=== PATIENT | female | born 1975 | race Caucasian/White ===

== ENCOUNTER 2023-06-25 21:19 | Outpatient (REF) | payer BC, SELFPAY ==
[2023-06-29 11:10] LABS: Age Gdln ACOG Testing Note (.); HPV Aptima Negative (Negative); IGP, Aptima HPV, rfx 16/18,45 Note (.)
== END 2023-06-25 21:20 | disposition home or self-care (01) ==
LOC: LAB 21:19
PROVIDERS: PCP Family Medicine; Visit Provider Obstetrics & Gynecology
DX: Z01.419 Encounter for gynecological examination (general) (routine) without abnormal findings (principal)
CPT/HCPCS: 87624; G0145

== ENCOUNTER 2024-06-23 12:31 | Emergency (ER) | payer BC, SELFPAY ==
[2024-06-23] VITALS (18 sets, daily range): BP systolic 112–142; BP diastolic 66–97; PULSE 77–93; TEMP 36.6; O2SAT 97–100; BMI 20.4
--- NOTE | 2024-06-23 13:24 | ECG_ITS ---
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
--- NOTE | 2024-06-23 13:25 | CT_ITS ---
The [address] [address] Patient Name: ANA HOPPER MRN: [id number] date: 1975 Sex: F Assigned Patient Location: ER Current Patient Location: ER Accession/Order Number: [id number] Exam Date: 06/23/2024 13:49 Report Date: 06/23/2024 14:41 At the request of: MARGUERITE MOREIRA Procedure: CT head/brain wo con EXAM: CT head/brain wo con HISTORY: Headache COMPARISON: None. TECHNIQUE: Multiple thin computed tomograms of the head were obtained, with sagittal and coronal reconstructions. Radiation reduction technique and algorithms were utilized during the study. FINDINGS: The ventricles are not enlarged, the lateral ventricles are symmetric and the third ventricles in the midline. The sylvian fissures and cortical sulci are unremarkable. There is no evidence of an intracranial hemorrhage, mass lesion or apparent acute infarct. No focal abnormality is identified the deep white matter. The cerebellum and visualized brainstem are intact. The visualized paranasal sinuses are clear. The middle ears are aerated. The mastoid sinuses are clear. There is no apparent acute skull fracture. CT/CT head/brain wo con IMPRESSION: There is no evidence of an intracranial hemorrhage, mass lesion or apparent acute infarct. The paranasal sinuses are clear. There is no apparent acute skull fracture. Electronically authenticated by: FITZ STANTON Date: 06/23/2024 14:41
--- NOTE | 2024-06-23 13:26 | ED.ARRPALP1 ---
HPI - Arrhythmia/Palpitations General Chief Complaint: Arrhythmia/Palpitations Stated Complaint: FAST HEART RATE/BLURRED VISION Time Seen by Provider: 06/23/24 13:05 Source: patient and family Mode of arrival: Wheelchair Limitations: no limitations History of Present Illness HPI narrative: Patient is a 48-year-old female who presents to the emergency department for the evaluation of multiple complaints. Patient states on Sunday she noticed blood in her urine so she had a telemedicine appointment to have antibiotics started for UTI. No one checked her urine. She states the blood has stopped at this time. Today she states she does not feel well she has had a left frontal headache associated with intermittent blurred vision as well as palpitations and a feeling that her heart is racing. She is noted to be normal sinus on the air sampling and monitoring at a rate of 84 at time of my evaluation, she states she still feels as though her heart is racing. She is not concerned for . She does not complain chest pain or shortness of breath. She has not had any objective fevers although she states she took Tylenol prior to arrival because she felt warm. She denies upper respiratory symptoms, vomiting or diarrhea. She states her arms and legs feel heavy . Related Data Allergies Allergy/AdvReac Type Severity Reaction Status Date / Time No Known Drug Allergies Allergy Verified 06/23/24 12:51 Review of Systems ROS Constitutional Denies: fever or chills Ears, nose, mouth, and throat Denies: throat pain or nasal congestion Cardiovascular Reports: palpitations; Denies: chest pain Respiratory Denies: shortness of breath Gastrointestinal Reports: nausea; Denies: vomiting Genitourinary Reports: blood in urine Musculoskeletal Denies: back pain or neck pain Integumentary/Breast Denies: rash Neurological Reports: headache and weakness in extremities; Denies: numbness in extremities or dizziness Hematologic/Lymphatic Denies: easy bruising or easy bleeding PFSH PFSH Social History Little interest or pleasure in doing things: not at all Feeling down, depressed, or hopeless: not at all Exam Narrative Exam Narrative: Gen.: Awake, alert, in no distress Head: Normocephalic, atraumatic ENT: Moist mucous membranes, moist mucous membranes Respiratory: No respiratory distress, lungs clear bilaterally Cardio: Regular rate and rhythm Gastrointestinal: Abdomen is soft, nondistended and nontender to palpation Extremities: Moves extremities equally Psych: Normal mood and affect Neuro: No focal neuro deficit Skin: Warm, dry, intact Constitutional Vital Signs, click to edit/add: Last Vital Signs Temp 97.8 F 06/23/24 12:47 Pulse 85 06/23/24 15:49 Resp 118 H 06/23/24 15:49 BP 115/86 06/23/24 15:49 Pulse Ox 98 06/23/24 15:49 O2 Del Method Room Air 06/23/24 12:47 Course Vital Signs Vital signs: Vital Signs Temperature 97.8 F 06/23/24 12:47 Pulse Rate 90 06/23/24 12:47 Respiratory Rate 20 06/23/24 12:47 Blood Pressure 136/97 H 06/23/24 12:47 Pulse Oximetry 100 06/23/24 12:47 Oxygen Delivery Method Room Air 06/23/24 12:47 Temperature 97.8 F 06/23/24 12:47 Pulse Rate 85 06/23/24 15:49 Respiratory Rate 118 H 06/23/24 15:49 Blood Pressure 115/86 06/23/24 15:49 Pulse Oximetry 98 06/23/24 15:49 Oxygen Delivery Method Room Air 06/23/24 12:47 MDM - Arrhythmia/Palpitations MDM Narrative Medical decision making narrative: Patient treated with IV fluids, Toradol, Zofran. Laboratory studies reviewed and noted within normal limits, patient with mild hyponatremia and ketones in her urine. She is hemodynamically stable with a benign exam, no focal neurodeficits, normal vital signs. Patient was found to have an elevated D-dimer, sent for CT of the brain and CT angio of the chest which were both unremarkable. Patient was reevaluated by attending physician and will be discharged home to follow-up with PCP. Return to the ER if symptoms change or worsen SHARED APC VISIT, PHYSICIAN ATTESTATION: [id number] I performed a substantive part of the MDM during the patient?s E/M visit. I personally evaluated and examined the patient. I personally made or approved the documented management plan and acknowledge its risk of complications. I, Dr Reeves, have reviewed the above progress note and course of action in the ER; agree with the above. I have personally seen and evaluated this patient, gone over history and physical, and discussed disposition and treatment plan with the patient. Medical Records Attestation: I reviewed the patient's medical records. Lab Data Attestation: I reviewed the patient's lab results. Labs: Lab Results 06/23/24 06/23/24 Range/Units 13:17 13:45 WBC 5.9 (4.0-11.0) 10^3/uL RBC 3.89 L (4.20-5.40) 10^6/uL Hgb 12.4 (12.0-16.0) g/dL Hct 33.9 L (36.0-48.0) % MCV 87.1 (81.0-99.0) fL MCH 31.9 (26.7-34.0) pg MCHC 36.6 H (29.9-35.2) g/dL RDW 11.0 (11.0-15.0) % Plt Count 243 (150-450) 10^3/uL MPV 9.5 (9.5-13.5) fL Neut % (Auto) 69.4 (43.0-75.0) % Lymph % (Auto) 18.4 L (20.5-60.0) % [place] % (Auto) 10.3 (1.7-12.0) % Eos % (Auto) 1.3 (0.9-7.0) % Baso % (Auto) 0.3 (0.2-2.0) % Neut # (Auto) 4.1 (1.4-6.5) 10^3/uL Lymph # (Auto) 1.1 L (1.2-3.8) 10^3/uL [place] # (Auto) 0.6 (0.3-0.8) 10^3/uL Eos # (Auto) 0.1 (0.0-0.7) 10^3/uL Baso # (Auto) 0.0 (0.0-0.1) 10^3/uL Abs Immat Gran (auto) 0.02 (0.00-0.03) 10^3/uL Imm/Tot Granulo (auto) 0.3 (0.0-0.5) % PT 10.8 (9.0-11.6) sec INR 1.02 D-Dimer 1.08 H* (<=0.59) mg/L FEU Sodium 131 L (136-145) mmol/L Potassium 3.5 (3.5-5.1) mmol/L Chloride 95 L (98-107) mmol/L Carbon Dioxide 24.9 (21.0-32.0) mmol/L Anion Gap 14.6 BUN 9.0 (7.0-18.0) mg/dL Creatinine 0.70 (0.55-1.02) mg/dL Est GFR ( Amer) >60 (>=60 mL/min/1.73m^2) Est GFR (Non-Af Amer) >60 (>=60 mL/min/1.73m^2) BUN/Creatinine Ratio 12.9 Glucose 99 (74-106) mg/dL Lactate 1.7 (0.4-2.0) mmol/L Calcium 8.5 (8.5-10.1) mg/dL Total Bilirubin 0.5 (0.2-1.0) mg/dL AST 28 (15-37) U/L ALT 18 (14-59) U/L Alkaline Phosphatase 74 (46-116) U/L Troponin I High Sens <4.0 L (4.0-51.3) pg/mL NT-Pro-B Natriuret Pep 201.0 (<=450.0) pg/mL Total Protein 6.7 (6.4-8.2) g/dL Albumin 3.2 L (3.4-5.0) g/dL Globulin 3.5 g/dL Albumin/Globulin Ratio 0.9 TSH 1.458 (0.358-3.740) uIU/mL Serum HCG, Qual Negative (NEGATIVE) Urine Color Lt. yellow (YELLOW) Urine Clarity Clear (CLEAR) Urine pH 6.0 (5.0-9.0) Ur Specific [place]ot <=1.005 A (1.005-1.025) Urine Protein Negative (NEG/TRACE) mg/dL Urine Glucose (UA) Negative (NEGATIVE) mg/dL Urine Ketones 15 A (NEGATIVE) mg/dL Urine Occult Blood Small A (NEGATIVE) Urine Nitrite Negative (NEGATIVE) Urine Bilirubin Negative (NEGATIVE) Urine Urobilinogen 0.2 (0.2-1.0) EU/dL Ur Leukocyte Esterase Negative (NEGATIVE) Urine RBC 2-5 A (0-2) #/HPF Urine WBC 0-2 A (NONE SEEN) #/HPF Ur Squamous Epith Cells Rare (NONE/RARE) #/LPF Urine Crystals None seen (None Seen) #/HPF Urine Bacteria Trace A (NONE SEEN) #/HPF Urine Casts None seen (NONE SEEN) #/LPF Urine Mucus None seen (NONE SEEN) Ur Culture Indicated? No Imaging Data CT scan - head: Attestation: I have reviewed the pertinent imaging results. Radiologist's impression: ITS Impressions Head CT 06/23/24 13:25 IMPRESSION: There is no evidence of an intracranial hemorrhage, mass lesion or apparent acute infarct. The paranasal sinuses are clear. There is no apparent acute skull fracture. Electronically authenticated by: FITZ STANTON Date: 06/23/2024 14:41 Chest CTA 06/23/24 13:52 IMPRESSION: No central pulmonary thromboembolic disease Electronically authenticated by: LUIS JUNG Date: 06/23/2024 14:54 ECG Data Attestation: I personally reviewed and interpreted this ECG as follows: (Normal sinus rhythm at a rate of 87, no acute ST elevation or ectopy. EKG reviewed by attending physician) Discharge Plan Discharge Chief Complaint: Arrhythmia/Palpitations Clinical Impression: Headache, Palpitations Patient Disposition: Home, Self-Care Time of Disposition Decision: 15:43 Condition: Good Print Language: Kazakh Instructions: Heart Palpitations (ED), Acute Headache (ED) Referrals: KATHLEEN SHAFFER [Primary Care Provider] - 1 week Discharge Date/Time: 06/23/24 15:50
[2024-06-23] MEDS: 0.9 % SODIUM CHLORIDE 1,000 ML 999 ML IV (13:32)
[2024-06-23] MEDS: KETOROLAC TROMETHAMINE 30 MG/ML VIAL IVP (13:33)
[2024-06-23] MEDS: ONDANSETRON PF 4 MG/2 ML VIAL IV (13:33)
[2024-06-23 13:34] LABS: Basophils Percent Auto 0.3 % (0.2-2.0); Eosinophils Absolute Auto 0.1 10^3/uL (0.0-0.7); Eosinophils Percent Auto 1.3 % (0.9-7.0); Hematocrit 33.9 % (36.0-48.0); Hemoglobin 12.4 g/dL (12.0-16.0); Immature Granulocytes Abs Auto 0.02 10^3/uL (0.00-0.03); Immature Granulocytes Pct Auto 0.3 % (0.0-0.5); Lymphocytes Absolute Auto 1.1 10^3/uL (1.2-3.8); Lymphocytes Percent Auto 18.4 % (20.5-60.0); Mean Corpuscular HGB Conc 36.6 g/dL (29.9-35.2); Mean Corpuscular Hemoglobin 31.9 pg (26.7-34.0); Mean Corpuscular Volume 87.1 fL (81.0-99.0); Mean Platelet Volume 9.5 fL (9.5-13.5); Monocytes Absolute Auto 0.6 10^3/uL (0.3-0.8); Monocytes Percent Auto 10.3 % (1.7-12.0); Neutrophils Absolute Auto 4.1 10^3/uL (1.4-6.5); Neutrophils Percent Auto 69.4 % (43.0-75.0); Platelet Count 243 10^3/uL (150-450); Red Blood Count 3.89 10^6/uL (4.20-5.40); White Blood Count 5.9 10^3/uL (4.0-11.0)
[2024-06-23 13:50] LABS: HCG Qualitative NEGATIVE (NEGATIVE); INR 1.02; Internal Control Within Normal Limits; Prothrombin Time 10.8 sec (9.0-11.6)
[2024-06-23 13:52] LABS: D Dimer 1.08 mg/L FEU (<=0.59)
--- NOTE | 2024-06-23 13:52 | CT_ITS ---
[address] [address] Patient Name: ANA HOPPER MRN: [id number] date: 1975 Sex: F Assigned Patient Location: ER Current Patient Location: ER Accession/Order Number: [id number] Exam Date: 06/23/2024 14:00 Report Date: 06/23/2024 14:54 At the request of: MARGUERITE MOREIRA Procedure: CT angio chest EXAMINATION: CT angio chest HISTORY: Palpitations COMPARISON: No relevant comparison available. TECHNIQUE: Multi-planar CT images were created with IV contrast. Axial, Coronal, and Sagittal images. Dose reduction techniques were achieved by using automated exposure control and/or adjustment of mA and/or kV according to patient size and/or use of iterative reconstruction technique. FINDINGS: LUNGS: No visible pulmonary disease. PLEURA: No mass, effusion, or pneumothorax. VASCULATURE: Normal postcontrast opacification of the central pulmonary arterial tree filling defect ALVIN: No mass or adenopathy. MEDIASTINUM: No mass or adenopathy. CARDIAC: No enlargement or pericardial effusion Coronary arteries: Absent calcifications AORTA: No aneurysm or dissection. CHEST WALL: No mass or axillary adenopathy. BONES: No bone lesion or fracture. LIMITED ABDOMEN: No suspicious findings. Limited images of the upper abdomen. OTHER: hyperdensity posterior to a mid thoracic vertebral bodies, exact level cannot be determined. A disc herniation is suspected extending posteriorly up to 3.3 mm best seen on sagittal image 48 CT/CT angio chest IMPRESSION: No central pulmonary thromboembolic disease Electronically authenticated by: LUIS JUNG Date: 06/23/2024 14:54
--- OUTSIDE RECORDS SUMMARY | 2024-06-23 13:55 | XMS_ITS | CCD ---
Author Organization [facility] Care Team Providers Care 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 Name Role Phone BECCA, DR MICHAELA Cazares Admitting Unavailable BECCA, DR MICHAELA Cazares Consulting Unavailable DEENA, DR WANG Primary Care Unavailable BECCA, DR MICHAELA Cazares Attending Unavailable PAY, DR DONOHUE Consulting Unavailable NAHID, DR LOPEZ Consulting Unavailable DEENA, DR WANG Primary Care Unavailable NAHID, DR LOPEZ Attending Unavailable NAHID, DR LOPEZ Admitting Unavailable MARKER, DR DAMON Attending Unavailable MARKER, DR DAMON Admitting Unavailable DEENA, DR WANG Primary Care Unavailable MARKER, DR DAMON Consulting Unavailable STRAWSER, CARLOS Consulting Unavailable LINDSAY SHAFFER Primary Care Physician [phone] LINDSAY SHAFFER Primary Care Physician LINDSAY BLANC Attending Unavailable LINDSAY BLANC Attending Unavailable LINDSAY BLANC Attending Unavailable LINDSAY BLANC Attending Unavailable NAKIA ROE Attending Unavailable Soledad STIPPLER, Sulema Han Unavailable Lindsay Shaffer MD Primary Care Provider Medications Current Medications Medication Drug Class(es) Dates Sig (Normalized) Sig (Original) ergocalciferol 1.25 mg oral capsule (2 sources) Provitamin D2 Compound Start: 10-06-2022 ergocalciferol (Vitamin D-2) 1.25 MG (20403 UT) capsule 1 capsule 10/06/2022 Active 24 hr oxybutynin chloride 10 mg extended release oral tablet (5 sources) Cholinergic Muscarinic Antagonist Start: 07-31-2023 take 1 tablet by mouth once daily oxybutynin 10 mg ER Tab 10 mg = 1 tab(s), Oral, Daily, # 90 tab(s), Refills(s) 3, Pharmacy: [facility], 160, cm, 01/16/24 14:55:00 EDT, Height/Length Dosing, 60, kg, 01/16/24 14:55:00 EDT, Weight Dosing Start Date: 01/16/24 Status: Ordered Start: 07-31-2023 End: 08-30-2023 take 1 tablet by mouth once daily oxybutynin 5 mg ER Tab 5 mg = 1 tab(s), Oral, Daily, X 30 day(s), # 30 tab(s), Refills(s) 0, Pharmacy: [facility], 160, cm, 07/31/23 10:29:00 EST, Height/Length Dosing, 60, kg, 07/31/23 10:29:00 EST, Weight Dosing Start Date: 07/31/23 Stop Date: 08/30/23 Status: Ordered Problems Active Problems Problem Classification Problem Date Documented Da te Episodic/Chronic Genitourinary symptoms and ill-defined conditions (8 sources) Urge incontinence; Translations: [Stress incontinence (female) (male)] Onset: 07-31-2023 Chronic Genitourinary symptoms and ill-defined conditions (4 sources) Increased frequency of urination; Translations: [Urgent desire to urinate] 07-31-2023 Episodic Other and unspecified benign neoplasm (2 sources) Melanocytic nevus of trunk; Translations: [Melanocytic nevi of trunk] 06-02-2024 Episodic Other circulatory disease (2 sources) Spider nevus; Translations: [Nevus, non-neoplastic] 06-02-2024 Episodic Other diseases of bladder and urethra (2 sources) Detrusor overactivity; Translations: [Overactive bladder] Onset: 07-31-2023 Chronic Other diseases of bladder and urethra (2 sources) Overactive bladder 07-31-2023 Chronic Past or Other Problems Problem Classification Problem Date Documented Date Episodic/Chronic E Codes: Natural/environment (1 source) Bitten by dog, initial encounter; Translations: [BITTEN BY DOG INITIAL ENCOUNTER] Onset: 11-02-2021 Episodic Immunizations and screening for infectious disease (2 sources) Encounter for screening for human papillomavirus (HPV); Translations: [Encounter for immunization] Onset: 11-02-2021 Episodic Open wounds of extremities (4 sources) Open bite of left forearm, initial encounter; Translations: [OPEN BITE LEFT FOREARM INITIAL ENC] Onset: 10-31-2021 Episodic Other screening for suspected conditions (not mental disorders or infectious disease) (4 sources) Encounter for screening for malignant neoplasm of cervix; Translations: [ENC SCREENING MALIG NEOPLASM CERV] Onset: 06-21-2022 Episodic Results Test Name Value Interpretation Reference Range Facil ity Screenson 01-18-2024 Screens [id number]. 00TIFF [facility] Ambulatory Visit Summaryon 0 01-16-2024 Ambulatory Visit Summary ANA HOPPER :1975 Visit Date:01/16/2024 Ambulatory Visit Instructions Your Diagnosis OAB (overactive bladder) Urge incontinence Stress incontinence Your Care Team Attending Physician - LINDSAY BLANC PA-C Primary Care Physician - LINDSAY SHAFFER MD This Is Your Medications List oxybutynin (oxybutynin 10 mg ER Tab) Discharge Vitals Temperature (Temporal Artery) 36.6 ?C Heart Rate (Peripheral) 77 Respiratory Rate 16 Blood Pressure 114/82 Height 160 cm Height 63 in Weight 60 kg Weight 132 lb BMI 23.44 What to do next Scheduled Follow-Up Appointments Sunday. 2024 2:00 PM EDT With: LINDSAY BLANC PA-C Where: [facility] Patient Educationon 01-16-20 Patient Education Obstetrics and Gynecology Overactive Bladder, Adult Overactive bladder is a condition in which a person has a sudden and frequent need to urinate. A person might also leak urine if he or she cannot get to the bathroom fast enough (urinary incontinence). Sometimes, symptoms can interfere with work or social activities. What are the causes? Overactive bladder is associated with poor nerve signals between your bladder and your brain. Your bladder may get the signal to empty before it is full. You may also have very sensitive muscles that make your bladder squeeze too soon. This condition may also be caused by other factors, such as: ? Medical conditions: ? Urinary tract infection. ? Infection of nearby tissues. ? Prostate enlargement. ? Bladder stones, inflammation, or tumors. ? Diabetes. ? Muscle or nerve weakness, especially from these conditions: ? A spinal cord injury. ? Stroke. ? Multiple sclerosis. ? Parkinson's disease. ? Other causes: ? Surgery on the uterus or urethra. ? Drinking too much caffeine or alcohol. ? Certain medicines, especially those that eliminate extra fluid in the body (diuretics). ? Constipation. What increases the risk? You may be at greater risk for overactive bladder if you: ? Are an older adult. ? Smoke. ? Are going through menopause. ? Have prostate problems. ? Have a neurological disease, such as stroke, dementia, Parkinson's disease, or multiple sclerosis (MS). ? Eat or drink alcohol, spicy food, caffeine, and other things that irritate the bladder. ? Are overweight or obese. What are the signs or symptoms? Symptoms of this condition include a sudden, strong urge to urinate. Other symptoms include: ? Leaking urine. ? Urinating 8 or more times a day. ? Waking up to urinate 2 or more times overnight. How is this diagnosed? This condition may be diagnosed based on: ? Your symptoms and medical history. ? A physical exam. ? Blood or urine tests to check for possible causes, such as infection. You may also need to see a health care provider who specializes in urinary tract problems. This is called a urologist. How is this treated? Treatment for overactive bladder depends on the cause of your condition and whether it is mild or severe. Treatment may include: ? Bladder training, such as: ? Learning to control the urge to urinate by following a schedule to urinate at regular intervals. ? Doing Kegel exercises to strengthen the pelvic floor muscles that support your bladder. ? Special devices, such as: ? Biofeedback. This uses sensors to help you become aware of your body's signals. ? Electrical stimulation. This uses electrodes placed inside the body (implanted) or outside the body. These electrodes send gentle pulses of electricity to strengthen the nerves or muscles that control the bladder. ? Women may use a plastic device, called a pessary, that fits into the vagina and supports the bladder. ? Medicines, such as: ? Antibiotics to treat bladder infection. ? Antispasmodics to stop the bladder from releasing urine at the wrong time. ? Tricyclic antidepressants to relax bladder muscles. ? Injections of botulinum toxin type A directly into the bladder tissue to relax bladder muscles. ? Surgery, such as: ? A device may be implanted to help manage the nerve signals that control urination. ? An electrode may be implanted to stimulate electrical signals in the bladder. ? A procedure may be done to change the shape of the bladder. This is done only in very severe cases. Follow these instructions at home: Eating and drinking ? Make diet or lifestyle changes recommended by your health care provider. These may include: ? Drinking fluids throughout the day and not only with meals. ? Cutting down on caffeine or alcohol. ? Eating a healthy and balanced diet to prevent constipation. This may include: ? Choosing foods that are high in fiber, such as beans, whole grains, and fresh fruits and vegetables. ? Limiting foods that are high in fat and processed sugars, such as fried and sweet foods. Lifestyle ? Lose weight if needed. ? Do not use any products that contain nicotine or tobacco. These include cigarettes, chewing tobacco, and vaping devices, such as e-cigarettes. If you need help quitting, ask your health care provider. General instructions ? Take hpnj-aai-nmebiqa and prescription medicines only as told by your health care provider. ? If you were prescribed an antibiotic medicine, take it as told by your health care provider. Do not stop taking the antibiotic even if you start to feel better. ? Use any implants or pessary as told by your health care provider. ? If needed, wear pads to absorb urine leakage. ? Keep a log to track how much and when you drink, and when you need to urinate. This will help your health care provider monitor yo (more content not included)... Normal [facility] Urology Office/Clinic Noteon 01-16-2024 Urology Office/Clinic Note Chief Complaint 2 month follow up; symptoms have improved greatly HPI Staff 5 month f/u Dx: OAB, urge incontinence and stress incontinence Oxybutynin started at last OV. Pt was to take 5mg ER for 1 month and then increase to 10mg ER if sx were not fully controlled and SE were tolerable. Oxybutynin has helped her. PVR: 63 ml Dysuria: denies Incomplete bladder emptying: denies Hematuria: denies Frequency: denies Urgency: denies Nocturia: once a night Stream: denies Leaking: denies Post void dripping: denies Wearing pads/ Depends: denies Urge incontinence: denies Stress incontinence: denies Incontinence without Sensory Awareness: denies Abdominal pain: denies Flank pain: denies Sexual complaints: _ History of Present Illness staff HPI reviewed and agree. Review of Systems PHQ Score Initial Depression Screen Score: 0 SCORE no fever, chills, malaise, myalgia. no rash/lesions. no chest pain, palpitations, or SOB. no abdominal pain, nausea, vomiting. no unilateral calf swelling, redness, pain Physical Exam Vitals & Measurements T: 36.6 ?C(Temporal Artery) HR: 77(Peripheral) RR: 16 BP: 114/82 HT: 63 in HT: 160 cm WT: 60 kg WT: 132 lb BMI: 23.44 General: nontoxic, NAD Mouth: moist mucosa Lungs: normal respiratory effort Cardio: regular rate, good distal perfusion Abdomen: nondistended, no suprapubic distention or tenderness, no CVA tenderness Neurologic: Grossly normal Skin: No rashes or suspicious lesions Assessment/Plan 1. OAB (overactive bladder) (N32.81: Overactive bladder) Had 3 vaginal births. Started on Oxybutynin 5mg ER x 1 mos, and then increased to 10mg ER. PVR 63 cc Very pleased since starting anticholinergic. Has noticed dry mouth, but not bothersome. Overall wishes to continue medication management. -90 day supply sent -Follow up in 1 year. If doing well at that point we can likely release her back to PCP care. 2. Urge incontinence (N39.41: Urge incontinence) BBS 9 (23-25) Improved. See #1. 3. Stress incontinence (N39.3: Stress incontinence (female) (male)) States she has tried Kegels. Reports it has only helped in the moment. Follow-up With When Contact Information LINDSAY BLANC PA-C, URL [address] [address] Additional Instructions: 1 year Patient Education Overactive Bladder, Adult Documentation recorded by the fer Sharma accurately reflects the services(s) I performed and decisions made by me. Authenticated by Lindsay Blanc PA-C on 01/16/2024 15:09:22. Kathryn Barnes, personally scribed for Anais Blanc PA-C on 01/16/2024 15:07:57. . Problem List/Past Medical History Ongoing OAB (overactive bladder) Stress incontinence Urge incontinence Urinary frequency Urinary urgency Historical No qualifying data Medications oxybutynin 10 mg ER Tab, 10 mg= 1 tab(s), Oral, Daily, 3 refills Allergies No Known Allergies Social History Tobacco Never (less than 100 in lifetime) Tobacco Use:. Never Smokeless Tobacco Use:., 01/16/2024 Immunizations Vaccine Date Status influenza virus vaccine, inactivated 06/2023 Recorded SARSCoV2 mRNA(zwsrdwcrr-bwoi-sq cros) vac 11/03/2021 Recorded SARS-CoV-2 (COVID-19) mRNA BNT-162b2 vax 10/20/2020 Recorded SARS-CoV-2 (COVID-19) mRNA BNT-162b2 vax 09/29/2020 Recorded Lab Results Ambulatory Point of Care Results Bilirubin Urine Dipstick: 1+ Small (01/16/24 14:55:00) Blood Urine Dipstick: Negative (01/16/24 14:55:00) Glucose Urine Dipstick: Negative (01/16/24 14:55:00) Ketones Urine Dipstick: Negative (01/16/24 14:55:00) Leukocytes Urine Dipstick: 1+ Small (01/16/24 14:55:00) Nitrite Urine Dipstick: Negative (01/16/24 14:55:00) Protein Urine Dipstick: Negative (01/16/24 14:55:00) Specific [place] Urine Dipstick: >=1.030 (01/16/24 14:55:00) Urine Appearance Urine Dipstick: Clear (01/16/24 14:55:00) Urine Color Urine Dipstick: Yellow (01/16/24 14:55:00) Urobilinogen Urine Dipstick: Normal 0.2-1 EU/dl (01/16/24 14:55:00) pH Urine Dipstick: 6 (01/16/24 14:55:00) [facility] Comment on above: Result Comment: Elec tronically Signed By: LINDSAY BLANC PA-C\.br\Date and Time Signed: 01/16/24 15:09 EDT\.br\Electronically Co-Signed By: Kathryn Sharma\.br\Date and Time Co-Signed: 01/16/24 15:08 EDT Consultation Noteon 08-01-20 23 Consultation Note [id number]#[id number] [facility] Physician Referralon 023 Physician Referral [id number]#[address] [facility] Screenson 08-01-2023 Screens [id number]#[address] [facility] Ambulatory Visit Summaryon 1 10-01-2022 Ambulatory Visit Summary ANA HOPPER :1975 Visit Date:07/04/2023 Ambulatory Visit Instructions Your Care Team Primary Care Physician - LINDSAY SHAFFER MD This Is Your Medications List oxybutynin (oxybutynin 10 mg ER Tab) oxybutynin (oxybutynin 5 mg ER Tab) What to do next Scheduled Follow-Up Appointments Sunday 11:00 AM EST With: LINDSAY BLANC PA-C Where: [facility] Patient Educationon 07-31-20 Patient Education Obstetrics and Gynecology Overactive Bladder, Adult Overactive bladder is a condition in which a person has a sudden and frequent need to urinate. A person might also leak urine if he or she cannot get to the bathroom fast enough (urinary incontinence). Sometimes, symptoms can interfere with work or social activities. What are the causes? Overactive bladder is associated with poor nerve signals between your bladder and your brain. Your bladder may get the signal to empty before it is full. You may also have very sensitive muscles that make your bladder squeeze too soon. This condition may also be caused by other factors, such as: ? Medical conditions: ? Urinary tract infection. ? Infection of nearby tissues. ? Prostate enlargement. ? Bladder stones, inflammation, or tumors. ? Diabetes. ? Muscle or nerve weakness, especially from these conditions: ? A spinal cord injury. ? Stroke. ? Multiple sclerosis. ? Parkinson's disease. ? Other causes: ? Surgery on the uterus or urethra. ? Drinking too much caffeine or alcohol. ? Certain medicines, especially those that eliminate extra fluid in the body (diuretics). ? Constipation. What increases the risk? You may be at greater risk for overactive bladder if you: ? Are an older adult. ? Smoke. ? Are going through menopause. ? Have prostate problems. ? Have a neurological disease, such as stroke, dementia, Parkinson's disease, or multiple sclerosis (MS). ? Eat or drink alcohol, spicy food, caffeine, and other things that irritate the bladder. ? Are overweight or obese. What are the signs or symptoms? Symptoms of this condition include a sudden, strong urge to urinate. Other symptoms include: ? Leaking urine. ? Urinating 8 or more times a day. ? Waking up to urinate 2 or more times overnight. How is this diagnosed? This condition may be diagnosed based on: ? Your symptoms and medical history. ? A physical exam. ? Blood or urine tests to check for possible causes, such as infection. You may also need to see a health care provider who specializes in urinary tract problems. This is called a urologist. How is this treated? Treatment for overactive bladder depends on the cause of your condition and whether it is mild or severe. Treatment may include: ? Bladder training, such as: ? Learning to control the urge to urinate by following a schedule to urinate at regular intervals. ? Doing Kegel exercises to strengthen the pelvic floor muscles that support your bladder. ? Special devices, such as: ? Biofeedback. This uses sensors to help you become aware of your body's signals. ? Electrical stimulation. This uses electrodes placed inside the body (implanted) or outside the body. These electrodes send gentle pulses of electricity to strengthen the nerves or muscles that control the bladder. ? Women may use a plastic device, called a pessary, that fits into the vagina and supports the bladder. ? Medicines, such as: ? Antibiotics to treat bladder infection. ? Antispasmodics to stop the bladder from releasing urine at the wrong time. ? Tricyclic antidepressants to relax bladder muscles. ? Injections of botulinum toxin type A directly into the bladder tissue to relax bladder muscles. ? Surgery, such as: ? A device may be implanted to help manage the nerve signals that control urination. ? An electrode may be implanted to stimulate electrical signals in the bladder. ? A procedure may be done to change the shape of the bladder. This is done only in very severe cases. Follow these instructions at home: Eating and drinking ? Make diet or lifestyle changes recommended by your health care provider. These may include: ? Drinking fluids throughout the day and not only with meals. ? Cutting down on caffeine or alcohol. ? Eating a healthy and balanced diet to prevent constipation. This may include: ? Choosing foods that are high in fiber, such as beans, whole grains, and fresh fruits and vegetables. ? Limiting foods that are high in fat and processed sugars, such as fried and sweet foods. Lifestyle ? Lose weight if needed. ? Do not use any products that contain nicotine or tobacco. These include cigarettes, chewing tobacco, and vaping devices, such as e-cigarettes. If you need help quitting, ask your health care provider. General instructions ? Take autk-pqz-uimuyea and prescription medicines only as told by your health care provider. ? If you were prescribed an antibiotic medicine, take it as told by your health care provider. Do not stop taking the antibiotic even if you start to feel better. ? Use any implants or pessary as told by your health care provider. ? If needed, wear pads to absorb urine leakage. ? Keep a log to track how much and when you drink, and when you need to urinate. This will help your health care provider monitor yo (more content not included)... Normal [facility] XR FOREARM LT 2 VIEWSon XR FOREARM LT 2 VIEWS XR ELBOW LT MIN 3 VIEWS, XR FOREARM LT 2 VIEWS: HISTORY: Elbow joint pain. COMPARISON: None available. TECHNIQUE: 3 left elbow, 2 left forearm radiographic view(s) obtained. FINDINGS: Left elbow: No acute fracture dislocations are present in the left elbow. The joint spaces are well-maintained. There is no significant joint effusion on the lateral projection. Left forearm: No acute fracture or dislocation is present within the left radius or ulna. The joint spaces are well-maintained. The soft tissues are within normal limits. IMPRESSION: No definitive acute fracture of the left elbow or the left forearm. Electronically authenticated by: CARLOS ROSEN Date: 2022-10-05 02:01 Normal [facility] PAP ACOG PANEL 2: 30 to 65on 06-28-2022 . . Normal [facility] Comment on above: Result Comment: Perf ormed at: WB Performed By: #### [id number] #### [facility] [address] [address] [address] Sharlene Omalley Age Gdln ACOG Testing 30-65 Normal [facility] Comment on above: Performed By: #### [id number] #### [facility] [address] [address] [address] Sharlene Omalley DIAGNOSIS: Comment Normal [facility] Comment on above: Result Comment: NEGA TIVE FOR INTRAEPITHELIAL LESION OR MALIGNANCY. Performed at: WB Performed By: #### [id number] #### [facility] [address] [place] [address] Dr. Sharlene Omalley HPV Aptima Negative Normal Negative [facility] Comment on above: Result Comment: This nucleic acid amplification test detects fourteen high-risk HPV types (16,18,31,33,35,39,45,51,52,56,58,59,66,68) without differentiation. Performed at: =G Performed By: #### [id number] #### [facility] [address] [address] [address] Sharlene Omalley HPV Genotype Reflex Comment Normal [facility] Comment on above: Result Comment: Crit eria not met, HPV Genotype not performed. Performed at: WB Performed By: #### [id number] #### [facility] [address] [address] [address] Sharlene Omalley Methodology: Comment Normal [facility] Comment on above: Result Comment: This liquid based ThinPrep(R) pap test was screened with the use of an image guided system. Performed at: WB Performed By: #### [id number] #### [facility] [address] [place] [address] Dr. Sharlene Omalley Note: Comment [facility] Comment on above: Result Comment: The Pap smear is a screening test designed to aid in the detection of premalignant and malignant conditions of the uterine cervix. It is not a diagnostic procedure and should not be used as the sole means of detecting cervical cancer. Both false-positive and false-negative reports do occur. . Performed at: WB Performed By: #### [id number] #### [facility] [address] [address] [address] Sharlene Omalley Performed by: Comment Normal [facility] Comment on above: Result Comment: Michael Stewart Clinical Documentation Specialist (ASCP) Performed at: WB Performed By: #### [id number] #### [facility] [address] [place] [address] Dr. Sharlene Omalley Specimen adequacy: Comment Normal [facility] Comment on above: Result Comment: Sati sfactory for evaluation. Endocervical and/or squamous metaplastic cells (endocervical component) are present. Performed at: WB Performed By: #### [id number] #### [facility] [address] [place] [address] Dr. Sharlene Omalley Vital Signs Date Time Vital Sign Value Performing Clinician Facility 01-16-2024 14:51-0400 Blood Pressure Location LINDSAYJIMMY BLANC [facility] 01-16-2024 14:51-0400 Body temperature 97.88 [degF] LINDSAY GUANACO [facility] 01-16-2024 14:51-0400 Diastolic blood pressure 82 mm[Hg] LINDSAY GUANACO [facility] 01-16-2024 14:51-0400 Heart rate 77 /min LINDSAY BLANC [facility] 01-16-2024 14:51-0400 Respiratory rate 16 /min LINDSAY BLANC [facility] 01-16-2024 14:51-0400 Systolic blood pressure 114 mm[Hg] LINDSAY BLANC [facility] 07-31-2023 10:16-0500 Blood Pressure Location LINDSAY BLANC [facility] of [facility] 07-31-2023 10:16-0500 Diastolic blood pressure 94 mm[Hg] LINDSAY BLANC [facility] 07-31-2023 10:16-0500 Heart rate 62 /min LINDSAY BLANC [facility] 07-31-2023 10:16-0500 Respiratory rate 16 /min LINDSAY BLANC [facility] 07-31-2023 10:16-0500 Systolic blood pressure 128 mm[Hg] LINDSAY BLANC [facility] Encounters Encounter Date Encounter Type Care Provider Facility Start: 01-20-2025 ambulatory LINDSAY BLANC Facili ty:[facility] [place] Start: 06-02-2024 End: 06-02-2024 Office outpatient new 20 minutes Nakia Roe MD Work Phone: [facility] Comment on above: Melanocytic nevus of trunk (Primary Dx); Capillary angioma Start: 06-02-2024 End: 06-02-2024 ambulatory NAKIA ROE Not Available Start: 06-02-2024 End: 06-02-2024 Kim Roe MD Work Phone: [facility] Start: 06-02-2024 End: 06-02-2024 Bamboo flowsheet Nakia Roe MD Work Phone: [facility] Start: 01-16-2024 End: 01-17-2024 ambulatory LINDSAY BLANC Facility:[facility] [place] Start: 01-16-2024 End: 01-16-2024 Patient encounter procedure [facility]ANC [facility] Start: 10-02-2023 End: 10-03-2023 ambulatory LINDSAY BLANC Facility:[facility] [place] Start: 07-31-2023 End: 08-01-2023 ambulatory [facility] Start: 07-31-2023 End: 07-31-2023 Patient encounter procedure LINDSAY BLANC [facility] Start: 07-04-2023 ambulatory LINDSAY GUANACO Facility :[facility] [place] Start: 10-05-2022 End: 10-05-[address] NELSON AYALA Facility:[facility] Start: 06-21-2022 End: 06-21-[address] JESSICA QUIROZ Facility:[facility] Start: 10-31-2021 End: 10-31-[address] MICHAELA HUDSON Facility: Procedures Date Procedure Procedure Detail Performing Clinician Start: 02-28-2023 Mammography Nakia puente MD Work Phone: Plan of Treatment Date Care Activity Detail Author Start: 07-09-2024 End: 07-09-2024 Patient encounter procedure 07/09/2024 4:00 PM EST Office Visit [facility] [address] [place] [id number] Jessica Quiroz DO [address] [place] [address] [facility] Start: 06-02-2024 End: 06-02-2024 Patient encounter procedure 06/02/2024 3:35 PM EDT Office Visit [facility] [address] [place] [id number] Nakia Roe MD [address] [place] [address] Arrived [facility] Comment on above: Arrived Start: 04-27-2024 Influenza vaccination Influenza Vacc ine (#1) [facility] Start: 02-29-2024 Screening for malign ant neoplasm of breast Mammogram [facility] Start: 2006 Screening for malign ant neoplasm of cervix [facility] Start: 1997 Screening for malign ant neoplasm of cervix Pap Smear [facility] Start: 1976 Screening for malign ant neoplasm of colon [facility] Immunizations Immunization Date Immunization Notes Care Provider Fa cility 06-27-2023 influenza virus vaccine, unspecified formulation LINDSAYJIMMY BLANC [facility] 11-03-2021 SARS-CoV-2 mRNA (fnantltajzx-sfew-fvltk se) vaccine LINDSAY BLANC [facility] 10-20-2020 SARS-CoV-2 (COVID-19 ) mRNA BNT-162b2 vax LINDSAY BLANC [facility] 09-29-2020 SARS-CoV-2 (COVID-19 ) mRNA BNT-162b2 vax LINDSAY BLANC [facility] Payers Date Payer Category Payer Unknown [id number] 2019 Unknown BCBS BCBS xxxxxx [id number] 2019-Present [phone] [address] [place] [address] [id number] 1976 Unknown [id number] 1976 Unknown [id number] 1976 Unknown [id number] 1976 Unknown [id number] 1976 Unknown [id number] 1976 Unknown [id number] 1976 Unknown [id number] 1976 Unknown [id number] 1959 Unknown [id number] Social History Date Type Detail Facility Start: 07-31-2023 End: 01-16-2024 Tobacco smoking status Never smoked tobacco (finding) [facility] Start: 06-11-2023 End: 06-02-2024 Sex Assigned At Female [facility] Tobacco smoking status Never [facility] Start: 06-11-2023 [facility] History [facility] tobacco use Current smoker [facility] History of tobacco use Cigarette Smoker [facility] Start: 06-25-2023 End: 06-03-2024 Alcoholic beverage intake Current drinker of alcohol (finding) [facility] Start: 06-11-2023 End: 06-02-2024 History of Social function [facility] Start: 06-11-2023 Alcohol Comment Alcohol: 1 or 2 drinks on a typical day/monthly or less Caffeine: 1 coffee daily [facility] Start: 1975 Sex assigned at Female [facility] Start: 02-28-2023 Gender identity Identifies as female gender (finding) [facility] Functional Status Date Assessment Result Facility 01-16-2024 Functional Status N/A [facility] 07-31-2023 Functional Status N/A [facility] History of Present illness Narrative 06-02-2024 Nakia Roe MD - 06/02/2024 3:35 PM EDT Note Date & Type Note Facility 06-02-2024 History of Presen t illness Narrative Images from the original note were not included. Lesions: Location: back Duration: 3 years Quality: denies pain, denies itch, denies bleeding Modifying factors: none Associated symptoms: no change in color or size Treatments: none Lesion # 2: Location: bottom lip Duration: 1 year Quality: denies pain, denies itch, denies bleeding Modifying factors: none Associated symptoms: patient reports lesion might have gotten a little bigger Treatments: none Patient declined a waist up/complete skin exam. New patient All pertinent medical history, medications, and allergies were reviewed. General Exam: alert, oriented to person, place, and time, normal affect, well appearing Unaccompanied A focused exam completed based on patient reported problems, see below: 1. Melanocytic nevus of trunk Mid Back Scattered benign appearing, regular brown to light brown melanocytic papules and macules with similar morphology Counseled regarding these benign growths. Rarely, a nevus can develop into malignant melanoma, so any changing nevi should be promptly re-evaluated. 2. 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 The patient was informed that angiomas are benign growths on the the skin. No treatment is necessary. If patient would like lesion removed it can be removed by laser insurance would consider removal cosmetic, recommended Dr. Ulysses MD for removal, contact information to Dr. Ulysses MD provided to patient. Next Visit: Rec pt schedule FBSE documented in this encounter [facility] Discharge instructions 01-16-2024 Note Date & Type Note Facility 01-16-2024 Hospital Discharg e instructions Patient Education 01/16/2024 15:06:24 Overactive Bladder, Adult Overactive Bladder, Adult Overactive bladder is a condition in which a person has a sudden and frequent need to urinate. A person might also leak urine if he or she cannot get to the bathroom fast enough (urinary incontinence). Sometimes, symptoms can interfere with work or social activities. What are the causes? Overactive bladder is associated with poor nerve signals between your bladder and your brain. Your bladder may get the signal to empty before it is full. You may also have very sensitive muscles that make your bladder squeeze too soon. This condition may also be caused by other factors, such as: Medical conditions: ?Urinary tract infection. ?Infection of nearby tissues. ?Prostate enlargement. ?Bladder stones, inflammation, or tumors. ?Diabetes. ?Muscle or nerve weakness, especially from these conditions: ?A spinal cord injury. ?Stroke. ?Multiple sclerosis. ?Parkinson's disease. Other causes: ?Surgery on the uterus or urethra. ?Drinking too much caffeine or alcohol. ?Certain medicines, especially those that eliminate extra fluid in the body (diuretics). ?Constipation. What increases the risk? You may be at greater risk for overactive bladder if you: Are an older adult. Smoke. Are going through menopause. Have prostate problems. Have a neurological disease, such as stroke, dementia, Parkinson's disease, or multiple sclerosis (MS). Eat or drink alcohol, spicy food, caffeine, and other things that irritate the bladder. Are overweight or obese. What are the signs or symptoms? Symptoms of this condition include a sudden, strong urge to urinate. Other symptoms include: Leaking urine. Urinating 8 or more times a day. Waking up to urinate 2 or more times overnight. How is this diagnosed? This condition may be diagnosed based on: Your symptoms and medical history. A physical exam. Blood or urine tests to check for possible causes, such as infection. You may also need to see a health care provider who specializes in urinary tract problems. This is called a urologist. How is this treated? Treatment for overactive bladder depends on the cause of your condition and whether it is mild or severe. Treatment may include: Bladder training, such as: ?Learning to control the urge to urinate by following a schedule to urinate at regular intervals. ?Doing Kegel exercises to strengthen the pelvic floor muscles that support your bladder. Special devices, such as: ?Biofeedback. This uses sensors to help you become aware of your body's signals. ?Electrical stimulation. This uses electrodes placed inside the body (implanted) or outside the body. These electrodes send gentle pulses of electricity to strengthen the nerves or muscles that control the bladder. ?Women may use a plastic device, called a pessary, that fits into the vagina and supports the bladder. Medicines, such as: ?Antibiotics to treat bladder infection. ?Antispasmodics to stop the bladder from releasing urine at the wrong time. ?Tricyclic antidepressants to relax bladder muscles. ?Injections of botulinum toxin type A directly into the bladder tissue to relax bladder muscles. Surgery, such as: ?A device may be implanted to help manage the nerve signals that control urination. ?An electrode may be implanted to stimulate electrical signals in the bladder. ?A procedure may be done to change the shape of the bladder. This is done only in very severe cases. Follow these instructions at home: Eating and drinking Make diet or lifestyle changes recommended by your health care provider. These may include: ?Drinking fluids throughout the day and not only with meals. ?Cutting down on caffeine or alcohol. ?Eating a healthy and balanced diet to prevent constipation. This may include: ?Choosing foods that are high in fiber, such as beans, whole grains, and fresh fruits and vegetables. ?Limiting foods that are high in fat and processed sugars, such as fried and sweet foods. Lifestyle Lose weight if needed. Do not use any products that contain nicotine or tobacco. These include cigarettes, chewing tobacco, and vaping devices, such as e-cigarettes. If you need help quitting, ask your health care provider. General instructions Take siwt-cdc-wlijhzt and prescription medicines only as told by your health care provider. If you were prescribed an antibiotic medicine, take it as told by your health care provider. Do not stop taking the antibiotic even if you start to feel better. Use any implants or pessary as told by your health care provider. If needed, wear pads to absorb urine leakage. Keep a log to track how much and when you drink, and when you need to urinate. This will help your health care provider monitor your condition. Keep all follow-up visits. This is important. Contact a health care provider if: You have a fever or chills. Your symptoms do not get better with treatment. Your pain and discomfort get worse. You have more frequent urges to urinate. Get help right away if: You are not able to control your bladder. Summary Overactive bladder refers to a condition in which a person has a sudden and frequent need to urinate. Several conditions may lead to an overactive bladder. Treatment for overactive bladder depends on the cause and severity of your condition. Making lifestyle changes, doing Kegel exercises, keeping a log, and taking medicines can help with this condition. This information is not intended to replace advice given to you by your health care provider. Make sure you discuss any questions you have with your health care provider. Document Revised: 05/02/2021 Document Reviewed: 05/02/2021 [employer] Patient Education 2022 [employer]. Follow Up Care 10/01/2023 16:32:42 With:GUANACO CARDENAS, LINDSAY Robin, URL Address: [address] [place] [place] [address] When: Unknown [facility] Clinical Note 07-31-2023 Note Date & Type Note Facility 07-31-2023 Note Chief Complaint New Pt. HPI Staff Evaluation requested by Dr Jessica Quiroz due to Urinary frequency & urgency. Pt is a new pt. Never before seen in our office. (Verified on DA) CMP 09/26/22- BUN 21 Crea 0.87 eGFR 84 Dysuria: no Incomplete bladder emptying: yes, PVR 0mL Hematuria: UA shows moderate today, Pt. is on her period Frequency: yes Urgency: yes Nocturia: 2-3x's Stream: Pt. states occasionally will have low urine out put Post void dripping: no Wearing pads/ Depends: occasionally will wear pad Urge incontinence: yes Stress incontinence: Pt. states not the biggest problem Incontinence without Sensory Awareness: no Abdominal pain: no Flank pain: no History of Present Illness staff HPI reviewed and agree. Review of Systems PHQ Score Initial Depression Screen Score: 0 SCORE no fever, chills, malaise, myalgia. no rash/lesions. no chest pain, palpitations, or SOB. no abdominal pain, nausea, vomiting. 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 1. OAB (overactive bladder) (N32.81: Overactive bladder) Ongoing x3yrs. Frequency/urgency does not change with activity. Had 3 vaginal births. ICIQ-SF 23-25. UA today is negative for infection, shows moderate blood but reports she is menstruating. Does not feel she empties completely and has low urine output occasionally. PVR today 0cc. Only drinks a cup of coffee in the morning. Drinks water the rest of the day. Discussed bladder irritants which pt does avoid. Denies constipation, has soft stools. Has not tried any bladder medications. Discussed medication management including anticholinergics and Myrbetriq. Myrbetriq is often preferable due to lower side effect profile, but most insurances don't cover it without trying anticholinergics first. Therefore we will start with Oxybutynin. Pt will start with lowest daily dose and slowly titrate up as pt tolerates. I explained the most common side effects are dry mouth, dry eyes, and constipation. We discussed OTC options to help with these side effects. Pt will stop medication and call office if side effects become intolerable. We did discuss that there is a documented potential side effect of mental status changes/confusion in the elderly, but that this risk is quite low. Pt and I agree that potential benefit outweigh risk at this time. Briefly discussed Botox as alternative option to medications. States she would be interested if sxs do not improve with medication. -Avoid bladder irritants. Educational pamphlets provided. -Begin Oxybutynin ER 5mg x 1mo. Increase to 10mg ER second mo if sx not fully controlled and side effects tolerable. Rx sent to [facility]. Pt to call our office if she experiences SEs and needs different medication. 2. Urge incontinence (N39.41: Urge incontinence) Has to void immediately when she has the urge otherwise she leaks. Wears pads occasionally. 3. Stress incontinence (N39.3: Stress incontinence (female) (male)) States she has tried Kegels. Reports it has only helped in the moment. PFPT discussed in detail. Pt prefers to try on own. Follow-up With When Contact Information LINDSAY BLANC PA-C, URL [address] [place] [address] [phone] Additional Instructions: 3 mos (new med) Patient Education Overactive Bladder, Adult Documentation recorded by the scribmarilin Hurtado accurately reflects the services(s) I performed and decisions made by me. Authenticated by Lindsay Blanc PA-C on 07/31/2023 11:27:27. I, Jannie Hurtado, personally scribed for Lindsay Blanc PA-C on 07/31/2023 11:18:00. . Problem List/Past Medical History Ongoing OAB (overactive bladder) Stress incontinence Urge incontinence Urinary frequency Urinary urgency Historical No qualifying data Medications No active medications Allergies No Known Allergies Social History Tobacco Never (less than 100 in lifetime) Tobacco Use:., 07/31/2023 Immunizations Vaccine Date Status influenza virus vaccine, inactivated 06/2023 Recorded Lab Results Ambulatory Point of Care Results Bilirubin Urine Dipstick: Negative (07/31/23 10:20:00) Blood Urine Dipstick: 2+ Moderate (07/31/23 10:20:00) Glucose Urine Dipstick: Negative (07/31/23 10:20:00) Ketones Urine Dipstick: Negative (07/31/23 10:20:00) Leukocytes Urine Dipstick: Negative (07/31/23 10:20:00) Nitrite Urine Dipstick: Negative (07/31/23 10:20:00) Protein Urine Dipstick (more content not included)... [facility] Comment on above: Result Comment: Elec tronically Signed By: LINDSAY BLANC PA-C\.br\Date and Time Signed: 07/31/23 11:27 EST\.br\Electronically Co-Signed By: Jannie Hurtado\nikita\Date and Time Co-Signed: 07/31/23 11:18 EST Hospital Discharge instructions 07-31-2023 Note Date & Type Note Facility 07-31-2023 Hospital Discharg e instructions Patient Education 07/31/2023 11:17:40 Overactive Bladder, Adult Overactive Bladder, Adult Overactive bladder is a condition in which a person has a sudden and frequent need to urinate. A person might also leak urine if he or she cannot get to the bathroom fast enough (urinary incontinence). Sometimes, symptoms can interfere with work or social activities. What are the causes? Overactive bladder is associated with poor nerve signals between your bladder and your brain. Your bladder may get the signal to empty before it is full. You may also have very sensitive muscles that make your bladder squeeze too soon. This condition may also be caused by other factors, such as: Medical conditions: ?Urinary tract infection. ?Infection of nearby tissues. ?Prostate enlargement. ?Bladder stones, inflammation, or tumors. ?Diabetes. ?Muscle or nerve weakness, especially from these conditions: ?A spinal cord injury. ?Stroke. ?Multiple sclerosis. ?Parkinson's disease. Other causes: ?Surgery on the uterus or urethra. ?Drinking too much caffeine or alcohol. ?Certain medicines, especially those that eliminate extra fluid in the body (diuretics). ?Constipation. What increases the risk? You may be at greater risk for overactive bladder if you: Are an older adult. Smoke. Are going through menopause. Have prostate problems. Have a neurological disease, such as stroke, dementia, Parkinson's disease, or multiple sclerosis (MS). Eat or drink alcohol, spicy food, caffeine, and other things that irritate the bladder. Are overweight or obese. What are the signs or symptoms? Symptoms of this condition include a sudden, strong urge to urinate. Other symptoms include: Leaking urine. Urinating 8 or more times a day. Waking up to urinate 2 or more times overnight. How is this diagnosed? This condition may be diagnosed based on: Your symptoms and medical history. A physical exam. Blood or urine tests to check for possible causes, such as infection. You may also need to see a health care provider who specializes in urinary tract problems. This is called a urologist. How is this treated? Treatment for overactive bladder depends on the cause of your condition and whether it is mild or severe. Treatment may include: Bladder training, such as: ?Learning to control the urge to urinate by following a schedule to urinate at regular intervals. ?Doing Kegel exercises to strengthen the pelvic floor muscles that support your bladder. Special devices, such as: ?Biofeedback. This uses sensors to help you become aware of your body's signals. ?Electrical stimulation. This uses electrodes placed inside the body (implanted) or outside the body. These electrodes send gentle pulses of electricity to strengthen the nerves or muscles that control the bladder. ?Women may use a plastic device, called a pessary, that fits into the vagina and supports the bladder. Medicines, such as: ?Antibiotics to treat bladder infection. ?Antispasmodics to stop the bladder from releasing urine at the wrong time. ?Tricyclic antidepressants to relax bladder muscles. ?Injections of botulinum toxin type A directly into the bladder tissue to relax bladder muscles. Surgery, such as: ?A device may be implanted to help manage the nerve signals that control urination. ?An electrode may be implanted to stimulate electrical signals in the bladder. ?A procedure may be done to change the shape of the bladder. This is done only in very severe cases. Follow these instructions at home: Eating and drinking Make diet or lifestyle changes recommended by your health care provider. These may include: ?Drinking fluids throughout the day and not only with meals. ?Cutting down on caffeine or alcohol. ?Eating a healthy and balanced diet to prevent constipation. This may include: ?Choosing foods that are high in fiber, such as beans, whole grains, and fresh fruits and vegetables. ?Limiting foods that are high in fat and processed sugars, such as fried and sweet foods. Lifestyle Lose weight if needed. Do not use any products that contain nicotine or tobacco. These include cigarettes, chewing tobacco, and vaping devices, such as e-cigarettes. If you need help quitting, ask your health care provider. General instructions Take wawf-ngm-ewjkacn and prescription medicines only as told by your health care provider. If you were prescribed an antibiotic medicine, take it as told by your health care provider. Do not stop taking the antibiotic even if you start to feel better. Use any implants or pessary as told by your health care provider. If needed, wear pads to absorb urine leakage. Keep a log to track how much and when you drink, and when you need to urinate. This will help your health care provider monitor your condition. Keep all follow-up visits. This is important. Contact a health care provider if: You have a fever or chills. Your symptoms do not get better with treatment. Your pain and discomfort get worse. You have more frequent urges to urinate. Get help right away if: You are not able to control your bladder. Summary Overactive bladder refers to a condition in which a person has a sudden and frequent need to urinate. Several conditions may lead to an overactive bladder. Treatment for overactive bladder depends on the cause and severity of your condition. Making lifestyle changes, doing Kegel exercises, keeping a log, and taking medicines can help with this condition. This information is not intended to replace advice given to you by your health care provider. Make sure you discuss any questions you have with your health care provider. Document Revised: 05/02/2021 Document Reviewed: 05/02/2021 [employer] Patient Education 2022 [employer]. Follow Up Care 07/12/2023 16:02:19 With:LINDSAY BLANC PA-C, URL Address: [address] [place] [address]. [place] [address] [phone] When: Unknown Comments:3 mos (new med) [facility] Evaluation + Plan note Note Date & Type Note Facility Evaluation + Plan note Future Appointments Appointment Date:10/02/2023 11:00:00 AM Scheduled Provider:LINDSAY BLANC PA-C Location:[facility] Appointment Type:URO Office Visit [facility] Evaluation + Plan note Note Date & Type Note Facility Evaluation + Plan note Future Appointments Appointment Date:01/20/2025 02:00:00 PM Scheduled Provider:LINDSAY BLANC PA-C Location:[facility] Appointment Type:URO Office Visit [facility] Evaluation note Note Date & Type Note Facility Evaluation note Diagnosis Melanocytic nevus of trunk- Primary Benign neoplasm of skin of trunk, except scrotum Capillary angioma Nevus, non-neoplastic documented in this encounter [facility] Hospital course Narrative Note Date & Type Note Facility Hospital course Narrative No data available for this section [facility] Progress note Note Date & Type Note Facility Progress note No data available for this section [facility] Summary Purpose Family History No Family History Records Found No data available for this section No data available for this section No Family History Records FoundNo Family History Records Found Advance Directives No Advanced Directives Records FoundNo Advanced Directives Records FoundNo Advanced Directives Records Found Additional Source Comments INFORMATION SOURCE (unrecogn ized section and content) DATE CREATED AUTHOR 10/05/2022 [facility] DATE CREATED AUTHOR AUTHOR'S ORGANIZ ATION 01/19/2024 [facility] DATE CREATED AUTHOR AUTHOR'S ORGANIZ ATION 06/04/2024 [facility] EPIC Patient Care team informatio n (unrecognized section and content) 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 Relationship Specialty Start Date End Date Sulema Rowe NP [address] [place] [address] PCP - [facility] 11/25/21 Lindsay Shaffer MD [address] [place] [address] PCP - General Family Medicine 01/02/23 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 Relationship Specialty Start Date End Date Sulema Rowe NP [address] [place] [address] PCP - [facility] 11/25/21 Lindsay Shafefr MD [address] [place] [address] PCP - General Family Medicine 01/02/23 Reason for Visit (unrecogniz ed section and content) Reason Comments Suspicious Skin Lesion FOR RECORDS PERTAINING TO PATIENTS WHO ARE OR HAVE BEEN ENROLLED IN A CHEMICAL DEPENDENCY/SUBSTANCEABUSE PROGRAM, SOME INFORMATION MAY BE OMITTED. This clinical summary was aggregated from multiple sources. Caution should be exercised in using it in the provision of clinical care. This summary normalizes information from multiple sources, and as a consequence, information in this document may materially change the coding, format and clinical context of patient data. In addition, data may be omitted in some cases. CLINICAL DECISIONS SHOULD BE BASED ON THE PRIMARY CLINICAL RECORDS. [facility] [employer] [facility]. provides no warranty or guarantee of the accuracy or completeness of information in this document.
[2024-06-23 13:58] LABS: Lactate/Lactic Acid 1.7 mmol/L (0.4-2.0)
[2024-06-23 14:03] LABS: Thyroid Stimulating Hormone 1.458 uIU/mL (0.358-3.740)
[2024-06-23 14:04] LABS: Alanine Aminotransferase 18 U/L (14-59); Albumin Globulin Ratio 0.9; Albumin Level 3.2 g/dL (3.4-5.0); Alkaline Phosphatase 74 U/L (46-116); Anion Gap 14.6; Aspartate Amino Transferase 28 U/L (15-37); BUN Creatinine Ratio 12.9; Bilirubin Total 0.5 mg/dL (0.2-1.0); Calcium 8.5 mg/dL (8.5-10.1); Carbon Dioxide 24.9 mmol/L (21.0-32.0); Chloride 95 mmol/L (98-107); Estimated GFR (African America >60 (>=60 mL/min/1.73m^2); Estimated GFR (Non-African Ame >60 (>=60 mL/min/1.73m^2); Globulin 3.5 g/dL; Glucose 99 mg/dL (74-106); Potassium 3.5 mmol/L (3.5-5.1); Sodium 131 mmol/L (136-145); Total Protein 6.7 g/dL (6.4-8.2); Troponin I High Sensitivity <4.0 pg/mL (4.0-51.3)
[2024-06-23 14:47] LABS: Bilirubin Urine NEGATIVE (NEGATIVE); Blood Urine SMALL (NEGATIVE); Clarity Urine CLEAR (CLEAR); Color Urine LT. YELLOW (YELLOW); Glucose Urine UA NEGATIVE (NEGATIVE); Ketones Urine 15 mg/dL (NEGATIVE); Leukocyte Esterase Urine NEGATIVE (NEGATIVE); Nitrite Urine NEGATIVE (NEGATIVE); Protein Urine NEGATIVE (NEG/TRACE); Specific Gravity Urine <=1.005 (1.005-1.025); Urobilinogen Urine 0.2 EU/dL (0.2-1.0)
[2024-06-23 14:52] LABS: Urine Microscopic Indicated YES
[2024-06-23 15:01] LABS: WBC Urine 0-2 #/HPF (NONE SEEN)
[2024-06-23 15:02] LABS: Bacteria Urine TRACE #/HPF (NONE SEEN); Cast Seen? NONE SEEN #/LPF (NONE SEEN); Crystals Seen? None Seen #/HPF (None Seen); Mucus Urine NONE SEEN (NONE SEEN); Squamous Epithelial Cell Urine RARE #/LPF (NONE/RARE); Urine Culture Indicated NO
== END 2024-06-23 15:50 | disposition home or self-care (01) ==
PROVIDERS: Physician Assistant; Emergency Provider Emergency Medicine; PCP Family Medicine
DX: R51.9 Headache, unspecified (principal); R00.2 Palpitations
CPT/HCPCS: 36415; 70450; 71275; 80053; 81001; 83605; 83880; 84443; 84484; 84703; 85025; 85378; 85610; 93005; 96374; 96375; 99285; J1885; J2405; Q9967